=== PATIENT | female | born 1970 | race Caucasian/White ===

== ENCOUNTER → 2018-09-24 | Outpatient (CLI) | payer BC ==
--- NOTE | 2018-09-24 11:01 | RAD ---
EXAM: Abdomen sonogram. HISTORY: Epigastric pain. TECHNIQUE: Sonographic imaging of the abdomen was performed. COMPARISON: None. FINDINGS: The liver is normal in size. No focal hepatic lesion is seen. The gallbladder is unremarkable. The common bile duct is normal in caliber. The kidneys, spleen, aorta and inferior vena cava are unremarkable. The pancreas is partially obscured due to bowel gas. IMPRESSION: Unremarkable abdomen sonogram, with limited evaluation of the pancreas due to bowel gas. Electronically signed by: Rose Marie Pérez MD (09/24/2018 10:58 AM) [facility]
== END | disposition home or self-care (01) ==
LOC: US 07:51
PROVIDERS: ATTEND Physician Assistant
DX: R10.13 Epigastric pain (principal); R11.0 Nausea
CPT/HCPCS: 76700

== ENCOUNTER → 2021-11-01 | Outpatient (CLI) | payer BC ==
--- NOTE | 2021-11-01 10:55 | RAD ---
XR SHOULDER_LEFT 2+ VIEWS DATE: 11/01/2021 8:00 AM INDICATION: CHRONIC PAIN COMPARISON: None. FINDINGS: There is no evidence of acute fracture or dislocation. Old healed mid clavicle fracture. Mild degenerative changes of the acromioclavicular joint. Glenohumeral joint is congruent. The acromi ohumeral distance is not narrowed. IMPRESSION: Mild AC joint osteoarthritis. Electronically signed by: Mick Canada MD (11/01/2021 10:53 AM) [id number]
--- NOTE | 2021-11-01 10:56 | RAD ---
XR KNEE_LT 1-2 VIEWS DATE: 11/01/2021 8:00 AM INDICATION: CHRONIC PAIN COMPARISON: None. FINDINGS: Bones: There is no evidence of acute fracture or dislocation. Joints: The joint spaces are normal. There is no joint effusion. Miscellaneous: None. IMPRESSION: Normal exam Electronically signed by: Mick Canada MD (11/01/2021 10:53 AM) [id number]
== END ==
LOC: RAD 07:53
PROVIDERS: ATTEND Physician Assistant
DX: M19.012 Primary osteoarthritis, left shoulder (principal); M25.562 Pain in left knee
CPT/HCPCS: 73030; 73560